=== PATIENT | male | born 1960 | race Caucasian/White ===

== ENCOUNTER → 2017-09-15 | Outpatient (CLI) | payer BC ==
[~2017-09-15] MED LIST: IBUPROFEN200 M1 PO; MULTI VITAMIN1 EACH PO; PERCOCET 5/31 TABLET PO; TRAMADOL HCL50 MG PO; TYLENOL WITH C1 EACH PO
== END | disposition home or self-care (01) ==
LOC: OPR 09:19 → EDSTATUS 10:00 → OPR 10:00
DX: C34.01 Malignant neoplasm of right main bronchus (principal); Z87.891 Personal history of nicotine dependence; Z85.828 Personal history of other malignant neoplasm of skin
CPT/HCPCS: 71045; 77012; 88305; 88341 TC; 88342 TC; J3010